=== PATIENT | female | born 2000 | race Caucasian/White ===

== ENCOUNTER 2023-06-22 05:19 | Emergency (ER) | payer MEDICAID ==
[~2023-06-22] VITALS: Ht 177.8 cm; Wt 91.0 kg
[2023-06-22 05:30] VITALS: O2SAT 99
[2023-06-22] MEDS: KETOROLAC 60MG/2ML VIAL IM ONE (06:27)
[2023-06-22] MEDS ORDERED: METH-653 MT (06:43)
[2023-06-22] MEDS ORDERED: IBUP-2028 MT (06:43)
[2023-06-22 07:13] LABS: CLARITY URINE CLOUDY (CLEAR); COLOR URINE DARK YELLOW (YELLOW); GLUCOSE URINE NEGATIVE (NEGATIVE); KETONES URINE NEGATIVE (NEGATIVE); LEUKOCYTE ESTERASE URINE 2+ (NEGATIVE); NITRITE URINE NEGATIVE (NEGATIVE); OCCULT BLOOD URINE NEGATIVE (NEGATIVE); PH URINE 5.5 (4.5-8.0); PROTEIN URINE TRACE (NEGATIVE); SPECIFIC GRAVITY URINE 1.026 (1.005-1.030)
[2023-06-22 07:40] VITALS: BP 145/88; PULSE 88; RESP 18; TEMP 98.7
[2023-06-22 08:11] LABS: SQUAMOUS EPITHELIAL CELL URINE 3+ /lpf (RARE/1+)
[2023-06-22 08:12] LABS: CALCIUM OXALATE CRYSTALS URINE 2+ /lpf
[2023-06-22 08:13] LABS: BACTERIA URINE 1+; MUCUS URINE TRACE /lpf (< = 2+)
[2023-06-22 08:16] LABS: RBC URINE NONE SEEN /hpf (0-2)
== END 2023-06-22 07:43 | disposition home or self-care (01) ==
LOC: ER 05:19
DX: G89.29 Other chronic pain (principal); M54.9 Dorsalgia, unspecified
CPT/HCPCS: 99283; 81003; 81025; 87086; 96372; J1885